=== PATIENT | female | born 1965 | race Two or more races ===

== ENCOUNTER 2023-04-18 14:30 | Outpatient (AMB) | payer OTHER, SELFPAY ==
--- NOTE | 2023-04-18 14:51 | A.OFFPC_ITS ---
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 She has allergic rhinitis and chronic venous insufficiency. Would like Flonase for her allergic rhinitis. Would like of vascular surgery referral for her pains. No chest pain or shortness of breath. [facility] Surgical History (Updated 04/18/23 @ 15:51 by Isis Pace MD) History of bladder surgery History of tubal ligation Family History (Updated 04/18/23 @ 15:52 by Isis Pace MD) Mother Osteoporosis Father No problems noted. Social History Housing: House Alcohol intake: never Patient Tobacco Use Status: Never used Tobacco e-Cigarette/Vaping Use: Never Used Second Hand Smoke Exposure: No service: No Current occupational status: employed Current occupational exposures/hazards: No Cognitive needs: No Hearing needs: No Vision needs: Yes Questionnaire PHQ-9 Over the last 2 weeks, how often have you been bothered by any of the following problems? 1. Little interest or pleasure in doing things: not at all 2. Feeling down, depressed, or hopeless: not at all 3. Trouble falling or staying asleep, or sleeping too much: not at all 4. Feeling tired or having little energy: not at all 5. Poor appetite or overeating: not at all 6. Feeling bad about yourself - or that you are a failure or have let yourself or your family down: not at all 7. Trouble concentrating on things, such as reading the newspaper or watching television: not at all 8. Moving or speaking so slowly that other people could have noticed. Or the opposite - being so fidgety or restless that you have been moving around a lot more than usual: not at all 9. Thoughts that you would be better off or of hurting yourself in some way: not at all Total score: 0 Depression Screening Interpretation: Negative Depression Screening Done: Yes 50302 - PHQ-9 Billing: Yes Source: Developed by Drs. Rojelio Santiago, Francoise Owen, Laith Peres and colleagues, with an educational emma from [employer]. Thrive Questionnaire Date Thrive assessed: 04/18/23 I am a: Patient What is your living situation today?: I have a steady place to live Within the past 12 months, did the food you bought not last and you didn't have the money to get more?: Never true Within the past 12 months, did you worry whether your food would run out before you got money to buy more?: Never true Do you have trouble paying for medicines?: No Do you have trouble getting transportation to medical appointments?: No Do you have trouble paying your heating and electricity bill?: No Do you have trouble taking care of your child, family member or friend?: No Do you have trouble with day-to-day activities such as bathing, preparing meals, shopping, managing finances, etc.?: No Are you currently unemployed and looking for a job?: No Are you interested in more education?: No Please select the resources that you would like help with: None Currently or been in a relationship where the following occur: no concerns reported THRIVE Score: 0 AUDIT C Alcohol Use Questionnaire (AUDIT-C) 1. How often do you have a drink containing alcohol?: Never Total Score: 0 JACQUELINE-7 AMB Questionnaire JACQUELINE-7 Date JACQUELINE - 7 assessed: 04/18/23 Feeling nervous, anxious, or on edge: 0 = Not at all Not being able to stop or control worryin = Not at all Worrying too much about different things: 0 = Not at all Trouble relaxin = Not at all Being so restless that it is hard to sit still: 0 = Not at all Becoming easily annoyed or irritable: 0 = Not at all Feeling afraid as if something awful might happen: 0 = Not at all Total JACQUELINE-7 score (0-4 normal; 5-9 mild; 10-14 moderate; 15-21 severe): 0 Source: Developed by Drs. Rojelio Santiago, Francoise Owen, Laith Peres and colleagues, with an educational emma from [employer]. JACQUELINE-7 Assessment Billing JACQUELINE-7 Assessment Tool: JACQUELINE-7 Assessment 16061 Review of Systems Const All systems reviewed & are unremarkable except as noted in HPI and below Eyes Reports no additional complaints, Denies change in vision and Denies other visual disturbances Card Denies chest pain at rest, Denies chest pain with activity, Denies edema, Denies irregular heart rhythm, Denies claudication, Denies dyspnea, Denies dyspnea on exertion, Denies orthopnea, Denies paroxysmal nocturnal dyspnea and Denies slow heart rate Resp Denies cough, Denies dyspnea and Denies dyspnea on exertion GI Denies abdominal pain, Denies change in bowel habits, Denies excessive flatus, Denies nausea and Denies vomiting Denies urinary incontinence, Denies urinary hesitancy and Denies urinary urgency Musc Denies abnormal gait, Denies atrophy, Denies deformity and Denies limited range of motion Skin/Breast Denies bleeding lesions, Denies changing lesions and Denies rash Neuro Denies abnormal gait, Denies behavioral changes and Denies lack of coordination Psych Denies behavioral changes Physical exam (Primary Care) Vital Signs: Last Vital Signs BP 120/80 04/18/23 14:53 BMI result Body Mass Index 29.9 Tobacco/Smoking Status: Tobacco use Status Tobacco use date assessed 04/18/23 04/18/23 14:59 Patient Tobacco Use Status Never used Tobacco 04/18/23 14:59 e-Cigarette/Vaping Use Never Used 04/18/23 14:59 PHQ-9: PHQ-9 Score PHQ-9: Total score 0 04/18/23 15:26 Depression Screening Interpretation: Negative Thrive Assessment: Date of Thrive Assessment Date Thrive assessed 04/18/23 04/18/23 14:59 Currently or been in a relationship where the following occur: no concerns reported Eyes General: appearance normal, both eyes and all related structures Eyelids: Yes eyelids normal Conjunctivae: conjunctivae normal Neck Neck: Yes normal visual inspection and Yes supple Resp Effort & Inspection: normal respiratory effort Auscultation: clear to auscultation bilaterally Cardio Jugular venous distension: no JVD Rate: regular rate Rhythm: regular rhythm Heart sounds: S1 normal heart sound present and S2 normal heart sound present Extrem General: Yes full ROM Assessment and Plan Assessment & Plan (1) Allergic rhinitis: Code(s): J30.9 - Allergic rhinitis, unspecified Plan: Start Flonase as needed. (2) Chronic venous insufficiency: Code(s): I87.2 - Venous insufficiency (chronic) (peripheral) Plan: Referred to vascular surgery. Orders: Orders MM screening mammo BI Today Z12.31 - Encounter for screening mammogram for malignant neoplasm of breast Referrals Open Access Screening Colonoscopy Referral Z12.11 - Encounter for screening for malignant neoplasm of colon Vascular Surgery Referral I87.2 - Venous insufficiency (chronic) (peripheral) Medications: New fluticasone propionate 50 mcg/actuation (Flonase Allergy Relief) administer into each nostril 1 spray intranasal DAILY 30 days 16 grams 0RF Coding Level of Care Code New Pt Level 3 (41860) Diagnoses Allergic rhinitis J30.9 Chronic venous insufficiency I87.2 Additional Codes JACQUELINE-7 Assessment Billing - JACQUELINE-7 Assessment Tool: JACQUELINE-7 Assessment 88693 ([id number]) Time Spent (min) 20
[2023-04-18 14:53] VITALS: BP 120/80; BMI 29.9
== END 2023-04-18 16:06 | disposition home or self-care (01) ==
PROVIDERS: PCP Internal Medicine; Visit Provider Internal Medicine
DX: J30.9 Allergic rhinitis, unspecified (principal); I87.2 Venous insufficiency (chronic) (peripheral)
CPT/HCPCS: 99203

== ENCOUNTER → 2023-05-11 14:45 | Outpatient (BNV) | payer OTHER, SELFPAY | PROVIDERS: PCP Internal Medicine; Visit Provider Radiology Diagnostic Radiology | DX: Z12.31 Encounter for screening mammogram for malignant neoplasm of breast (principal) | CPT/HCPCS: 77063; 77067 ==

== ENCOUNTER 2023-05-11 14:47 | Outpatient (REF) | payer OTHER, SELFPAY ==
--- NOTE | ~2023-05-11 | MM_ITS ---
EXAMINATION: MM SCREENING DIGITAL BREAST TOMOSYNTHESIS, BILATERAL CLINICAL INFORMATION: Screening. Asymptomatic. COMPARISON: Mammography: There are no prior mammograms for comparison. TECHNIQUE: Digital breast tomosynthesis is performed in both the craniocaudal and mediolateral oblique views along with computer-aided detection (CAD). Synthesized 2D images are generated from the tomosynthesis. FINDINGS: The breasts are heterogeneously dense, which may obscure small masses (ACR BI-RADS breast composition Category c). There are no significant masses, abnormal calcifications, or other abnormalities. MM/MM tomosynthesis screening BI IMPRESSION: No mammographic evidence of malignancy. ASSESSMENT: BI-RADS BI-RADS 1 - Negative RECOMMENDATION: Routine annual mammography screening. 1 year F/U This examination should not preclude the clinical evaluation of a suspicious palpable abnormality. This patient's information was entered into a reminder system with a target due date for their next mammogram.
== END 2023-05-11 14:48 | disposition home or self-care (01) ==
LOC: HO.MAMMO 14:47
PROVIDERS: PCP Internal Medicine; Visit Provider Internal Medicine
DX: Z12.31 Encounter for screening mammogram for malignant neoplasm of breast (principal)
CPT/HCPCS: 77063; 77067

== ENCOUNTER 2023-06-07 13:17 | Outpatient (AMB) | payer OTHER, SELFPAY ==
--- NOTE | 2023-06-07 13:22 | MHC.OFFVIS ---
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 Bilateral , but worse on her right leg. She started getting them once she started having children. She gets cramps , pain and her legs get tired. Her legs feel heavy from time to time.She has always worked on her feet. Patient is not a smoker. Her right leg has varicose starting from the thigh down to her ankle. 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 She does have some varicosities in the right thigh and calf. This gets interesting as she did have a significant swelling episode while in the [place]. It is unclear what exactly happened but she had significant swelling and numbness down the left side of her body. She does not describe it as a stroke type episode. She now has some lower extremity varicosities. She now presents for evaluation. Of note she denies any previous history of treatment or DVT. [facility] Surgical History History of bladder surgery History of tubal ligation Family History Mother Osteoporosis Father No problems noted. Social History Housing: House Alcohol intake: never Patient Tobacco Use Status: Never used Tobacco e-Cigarette/Vaping Use: Never Used Second Hand Smoke Exposure: No service: No Current occupational status: employed Current occupational exposures/hazards: No Cognitive needs: No Hearing needs: No Vision needs: Yes Review of Systems Const Reports as per HPI ENT Reports no additional complaints Card Denies chest pain, Denies chest pain at rest and Denies chest pain with activity Resp Denies chest congestion and Denies cough GI Reports no additional complaints Musc Details: pain over varicosities, aching of lower extremities, swelling, cramping, heaviness and tiredness, itching Denies abnormal gait Skin/Breast Reports pruritus and Denies wounds Neuro Reports no additional complaints and Denies abnormal gait Psych Denies no additional complaints Physical Exam Const General: cooperative, healthy appearing and comfortable Orientation/consciousness: oriented to person, oriented to place and oriented to time Neck Carotids: no bruits Chest Chest palpation & inspection: normal inspection of the chest and normal palpation of entire chest wall Resp Effort & Inspection: normal respiratory effort and able to speak in complete sentences Cardio Rate: regular rate Heart sounds: S1 normal heart sound present and S2 normal heart sound present Peripheral pulses: Peripheral pulses 2+ throughout GI Inspection: Yes normal to inspection Skin Other: +2 edema, large rope-like varicosities greater than 4 mm CEAP Classification C4 - skin color changes Ep - Etiology Primary As - superficial veins P - reflux General skin exam: dry skin Neuro General: oriented to person, oriented to place and oriented to time Extrem Right lower extremity: full ROM, normal capillary refill and edema Left lower extremity: full ROM, normal capillary refill and edema Psych Mental Status: mental status grossly normal Assessment & Plan Assessment & Plan (1) Varicose veins of right lower extremity with inflammation: Code(s): I83.11 - Varicose veins of right lower extremity with inflammation Category: Medical Plan: Unclear etiology of issues. She does have some mild varicosities and I have taken the liberty of ordering venous insufficiency testing to rule that out. We did discuss routine conservative measures including compression, elevation, and exercise. She is planning a trip to the [facility] and we can schedule testing upon her return. She will follow up with us after testing. Thank you for allowing us to assist in her care. Orders: Orders US venous duplex LE BI 1 Week I83.11 - Varicose veins of right lower extremity with inflammation Coding Level of Care Code New Pt Level 4 (70504) Diagnoses Varicose veins of right lower extremity with inflammation I83.11
== END 2023-06-07 13:48 | disposition home or self-care (01) ==
PROVIDERS: PCP Internal Medicine; Visit Provider Surgery Vascular Surgery
DX: I83.11 Varicose veins of right lower extremity with inflammation (principal)
CPT/HCPCS: 99203

== ENCOUNTER → 2023-06-07 13:17 | Outpatient (BNVA) | payer OTHER, SELFPAY | PROVIDERS: PCP Internal Medicine; Visit Provider Surgery Vascular Surgery | DX: I83.11 Varicose veins of right lower extremity with inflammation (principal) | CPT/HCPCS: 99202 ==

== ENCOUNTER 2023-08-16 09:52 | Outpatient (REF) | payer OTHER, SELFPAY ==
--- NOTE | ~2023-08-16 | US_ITS ---
EXAMINATION: US LOWER EXTREMITY VENOUS (REFLUX EXAM), BILATERAL CLINICAL INDICATION: Varicose veins of the right lower extremity with inflammation COMPARISON: None. TECHNIQUE: Color flow triplex imaging and compression Doppler was performed to evaluate both the deep and the superficial systems bilaterally. To evaluate the superficial system, the examination was performed in the upright position. Color-flow Doppler ultrasound and compression ultrasound were utilized. In addition, maneuvers were utilized to demonstrate reflux. FINDINGS: 1. DEEP VENOUS ULTRASOUND OF THE RIGHT LOWER EXTREMITY: Common Femoral Vein: Compressible, normal respiratory variation and augmented flow. Femoral Vein: Compressible, normal color flow and augmentation. Popliteal Vein: Compressible, normal augmentation. Deep Reflux: There is no evidence of reflux in the deep system in either the common femoral vein, superficial femoral or the popliteal vein. There is no evidence of a Suarez's cyst. 2. SUPERFICIAL ULTRASOUND WITH DOPPLER OF RIGHT LOWER EXTREMITY: GREAT SAPHENOUS VEIN: Saphenofemoral Junction: 0.7 cm; Reflux: 0 ms Proximal Thigh: 0.5 cm; Reflux: 0 ms Mid Thigh: 0.3 cm; Reflux: 0 ms Above Knee: 0.4 cm; Reflux: 0 ms At Knee: 0.3 cm; Reflux: 0 ms Below Knee: 0.4 cm; Reflux: 2992 ms Mid Calf: 0.2 cm; Reflux: 0 ms Ankle: 0.2 cm; Reflux: 948 ms DUPLICATED LATERAL GREAT SAPHENOUS VEIN: Saphenofemoral Junction: 0.4 cm; Reflux: 0 ms Mid Thigh: 0.2 cm; Reflux: 0 ms SMALL SAPHENOUS VEIN: Saphenopopliteal Junction: 0.5 cm; Reflux: 0 ms Proximal: 0.3 cm; Reflux: 0 ms Distal: 0.2 cm; Reflux: 948 ms VEIN OF GIACOMINI: Size: 0.2; Reflux: 0 ms PERFORATORS: Location: Mid thigh Size: 0.2; Reflux: 0 ms Location: Distal thigh Size: 0.2; Reflux: 0 ms Location: Mid calf Size: 0.3; Reflux: 0 ms Location: Mid calf Size: 0.4; Reflux: 0 ms VARICOSITIES: Location: ASV lateral mid Size: 0.4; Reflux: 1488 ms Location: Anterior lateral thigh Size: 0.3; Reflux: 3000 ms Location: Mid calf Size: 0.3; Reflux: 0 ms 3. DEEP VENOUS ULTRASOUND OF THE LEFT LOWER EXTREMITY: Common Femoral Vein: Compressible, normal respiratory variation and augmented flow. Femoral Vein: Compressible, normal color flow and augmentation. Popliteal Vein: Compressible, normal augmentation. Deep Reflux: There is no evidence of reflux in the deep system in either the common femoral vein, superficial femoral or the popliteal vein. There is no evidence of a Suarez's cyst. 4. SUPERFICIAL ULTRASOUND WITH DOPPLER OF LEFT LOWER EXTREMITY: GREAT SAPHENOUS VEIN: Saphenofemoral Junction: 0.7 cm; Reflux: 0 ms Proximal Thigh: 0.3 cm; Reflux: 0 ms Mid Thigh: 0.3 cm; Reflux: 0 ms Above Knee: 0.09 cm; Reflux: 0 ms At Knee: 0.06 cm; Reflux: 0 ms Below Knee: 0.1 cm; Reflux: 0 ms Mid Calf: 0.1 cm; Reflux: 2524 ms Ankle: 0.2 cm; Reflux: 0 ms DUPLICATED LATERAL GREAT SAPHENOUS VEIN: Saphenofemoral Junction: 0.3 cm; Reflux: 0 ms Mid Thigh: 0.2 cm; Reflux: 936 ms SMALL SAPHENOUS VEIN: Saphenopopliteal Junction: 0.4 cm; Reflux: 0 ms Proximal: 0.2 cm; Reflux: 0 ms Distal: 0.2 cm; Reflux: 0 ms PERFORATORS: Location: Mid SSV Size: 0.2; Reflux: 0 ms Location: Mid calf Size: 0.2; Reflux: 0 ms VARICOSITIES: Location: Distal thigh Size: 0.3; Reflux: 0 ms Location: Mid calf Size: 0.2; Reflux: 0 ms US/US venous duplex LE BI IMPRESSION: 1. No evidence of deep venous thrombosis. 2. Incompetent right great saphenous vein at the level of the proximal calf and ankle with reflux measuring up to 03/16/1991 milliseconds. 3. Focal incompetence of the right small saphenous vein at the level of the distal calf with reflux measuring 948 ms. 4. Focal incompetence of the left great saphenous vein at the level of the mid calf with reflux measuring 2524 ms. 5. Incompetent left duplicated lateral great saphenous vein at the level of the mid thigh with reflux measuring 936 ms. 6. Competent right duplicated lateral great saphenous vein and left small saphenous vein. 7. Scattered varicose veins in the bilateral lower extremities, two of which demonstrate reflux in the right lower extremity up to 3000 ms. 8. Scattered bilateral perforators, none of which demonstrate reflux.
== END 2023-08-16 09:53 | disposition home or self-care (01) ==
LOC: HO.US 09:52
PROVIDERS: PCP Internal Medicine; Visit Provider Surgery Vascular Surgery
DX: I83.11 Varicose veins of right lower extremity with inflammation (principal)
CPT/HCPCS: 93970

== ENCOUNTER 2023-08-29 10:35 | Outpatient (AMB) | payer OTHER, SELFPAY ==
[2023-08-29 10:46] VITALS: BP 110/70; BMI 29.9
--- NOTE | 2023-08-29 10:46 | MHC.PC.OV ---
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 Accompanied by: Self / Same As Patient Allergies No Known Allergies Allergy (Verified 08/29/23 11:07) Medication List - Last Reconciled 08/29/23 by Isis Pace MD fluticasone propionate 50 mcg/actuation (Flonase Allergy Relief) 1 spray intranasal DAILY 30 days Tobacco use date assessed: 04/18/23 Dental Screening Dental Screen Date: 08/29/23 Did you have a dental visit in the last 12 months?: No Did you have a dental problem in the last 6 months where you did not have access to dental care?: No Was dental information given to patient?: Yes HPI HPI Comments History of Present Illness Details This is a 57-year-old female that comes for her physical exam. Mammogram done 2023 was normal. Pap smear done 2022 in [place] was normal as per patient. She was refer through open access in April and has not heard back from them. No chest pain or shortness on breath. She does complains dizziness with left ear tinnitus that is aggravated by changes in head position that started about a month ago after she came from [facility] in the plane. [facility] Surgical History History of tooth extraction History of bladder surgery History of tubal ligation Family History Mother Osteoporosis Father No problems noted. Social History Housing: House Alcohol intake: never Patient Tobacco Use Status: Never used Tobacco e-Cigarette/Vaping Use: Never Used Second Hand Smoke Exposure: No service: No Current occupational status: employed Current occupational exposures/hazards: No Cognitive needs: No Hearing needs: No Vision needs: Yes Questionnaire Thrive Questionnaire Date Thrive assessed: 04/18/23 JACQUELINE-7 AMB Questionnaire JACQUELINE-7 Date JACQUELINE - 7 assessed: 04/18/23 Source: Developed by Drs. Rojelio Santiago, Francoise B.Laith Humphreys and colleagues, with an educational emma from [employer]. Review of Systems Const All systems reviewed & are unremarkable except as noted in HPI and below ENT Reports vertigo and Reports tinnitus Card Denies chest pain at rest, Denies chest pain with activity, Denies edema, Denies irregular heart rhythm, Denies claudication, Denies dyspnea, Denies dyspnea on exertion, Denies orthopnea, Denies paroxysmal nocturnal dyspnea and Denies slow heart rate Resp Denies cough, Denies dyspnea and Denies dyspnea on exertion GI Denies abdominal pain, Denies change in bowel habits, Denies excessive flatus, Denies nausea and Denies vomiting Neuro Reports vertigo Physical exam (Primary Care) Vital Signs: Last Vital Signs BP 110/70 08/29/23 10:46 BMI result Body Mass Index 29.9 Tobacco/Smoking Status: Tobacco use Status Tobacco use date assessed 04/18/23 08/29/23 10:49 Patient Tobacco Use Status Never used Tobacco 08/29/23 10:49 e-Cigarette/Vaping Use Never Used 08/29/23 10:49 Thrive Assessment: Date of Thrive Assessment Date Thrive assessed 04/18/23 08/29/23 10:49 [facility] Head: Yes normal to inspection, Yes normocephalic and Yes atraumatic Ears: external ears normal Eyes General: appearance normal, both eyes and all related structures Eyelids: Yes eyelids normal Conjunctivae: conjunctivae normal Neck Neck: Yes normal visual inspection and Yes supple Resp Effort & Inspection: normal respiratory effort Auscultation: clear to auscultation bilaterally Cardio Jugular venous distension: no JVD Rate: regular rate Rhythm: regular rhythm Heart sounds: S1 normal heart sound present and S2 normal heart sound present GI Inspection: Yes normal to inspection Palpation (GI): Soft to palpation and nontender Auscultation: normal bowel sounds Skin General skin exam: no rashes or lesions noted Neuro General: no focal motor deficits Extrem General: Yes full ROM Psych Appearance: grossly normal Assessment and Plan Assessment & Plan (1) Physical exam: Code(s): Z00.00 - Encounter for general adult medical examination without abnormal findings Plan: Repeat in a year. (2) Vertigo: Code(s): R42 - Dizziness and giddiness Plan: Start meclizine as needed. Referred to vestibular therapy. Patient would like to see ENT and was referred. Orders: Orders Complete Blood Count Auto Diff Today R42 - Dizziness and giddiness Lipid Panel Today Z00.00 - Encounter for general adult medical examination without abnormal findings PT Evaluation and Treatment Today R42 - Dizziness and giddiness Comprehensive [place]. Panel Fast Today Z00.00 - Encounter for general adult medical examination without abnormal findings Referrals Ear/Nose/Throat Referral R42 - Dizziness and giddiness Medications: New meclizine 25 mg PO DAILY 5 days PRN 5 tabs 0RF motion sickness Coding Level of Care Code Est Pt Level 3 (69688) Est Pt Prev Care 40-64y(21609) Diagnoses Physical exam Z00.00 Vertigo R42 Time Spent (min) 34
== END 2023-08-29 11:19 | disposition home or self-care (01) ==
PROVIDERS: PCP Internal Medicine; Visit Provider Internal Medicine
DX: Z00.00 Encounter for general adult medical examination without abnormal findings (principal); R42 Dizziness and giddiness
CPT/HCPCS: 99213; 99396

== ENCOUNTER 2023-11-13 14:29 | Outpatient (AMB) | payer OTHER, SELFPAY ==
--- NOTE | 2023-11-13 14:41 | A.OFFVIS_ITS ---
Intake Visit Reasons: follow up s/p US 08/16/23 Intake Note: Patient presents for follow up US performed on 08/06/23. She states she only has pain in the right leg. Both legs get tired . Allergies No Known Allergies Allergy (Verified 11/13/23 14:43) [facility] follow up s/p US 08/16/23: Details: Pleasant 57-year-old female presents for follow-up regarding venous insufficien cy. She has significantly swollen and painful varicosities in particular the right anterior thigh they have been a source of pain and discomfort for her. She now presents for follow-up regarding that. She has had no interval issues. She now presents for follow-up with venous insufficiency testing. [facility] Surgical History History of tooth extraction History of bladder surgery History of tubal ligation Family History Mother Osteoporosis Father No problems noted. Social History Housing: House Alcohol intake: never Patient Tobacco Use Status: Never used Tobacco e-Cigarette/Vaping Use: Never Used Second Hand Smoke Exposure: No service: No Current occupational status: employed Current occupational exposures/hazards: No Cognitive needs: No Hearing needs: No Vision needs: Yes Review of Systems Const Reports as per HPI ENT Reports no additional complaints Card Denies chest pain, Denies chest pain at rest and Denies chest pain with activity Resp Denies chest congestion and Denies cough GI Reports no additional complaints Musc Details: pain over varicosities, aching of lower extremities, swelling, cramping, heaviness and tiredness, itching Denies abnormal gait Skin/Breast Reports pruritus and Denies wounds Neuro Reports no additional complaints and Denies abnormal gait Psych Denies no additional complaints Physical Exam Const General: cooperative, healthy appearing and comfortable Orientation/consciousness: oriented to person, oriented to place and oriented to time Neck Carotids: no bruits Chest Chest palpation & inspection: normal inspection of the chest and normal palpation of entire chest wall Resp Effort & Inspection: normal respiratory effort and able to speak in complete sentences Cardio Rate: regular rate Heart sounds: S1 normal heart sound present and S2 normal heart sound present Peripheral pulses: Peripheral pulses 2+ throughout GI Inspection: Yes normal to inspection Skin Other: +2 edema, large rope-like varicosities greater than 4 mm right anterior thigh CEAP Classification C4 - skin color changes Ep - Etiology Primary As - superficial veins P - reflux General skin exam: dry skin Neuro General: oriented to person, oriented to place and oriented to time Extrem Right lower extremity: full ROM, normal capillary refill and edema Left lower extremity: full ROM, normal capillary refill and edema Psych Mental Status: mental status grossly normal Results Reviewed Results Reviewed: Brief summary of venous insufficiency testing is as follows: right great saphenous vein: Positive right small saphenous vein: negative right accessory vein: none present left great saphenous vein: negative left small saphenous vein: negative left accessory vein: none present Please note there is no evidence of any venous aneurysms or significant tortuosity Assessment & Plan Assessment & Plan (1) Varicose veins of right lower extremity with inflammation: Code(s): I83.11 - Varicose veins of right lower extremity with inflammation Category: Medical Plan: This patient has varicose veins with inflammation. They continue to be a source of discomfort for the patient. The patient has tried conservative treatment with compression, leg elevation and exercise program for over 3 months time. They have been compliant with all treatment. This has provided minimal relief for the patient. I do not anticipate this course of treatment will alter the underlying etiology. The patient has been scheduled for lower extremity venous treatment inclusive of --- right great saphenous vein Cyanoacralate ablation. Risks, benefits, and complications of this procedure has been discussed in detail with the patient including but not limited to bleeding, infection, and the development of a DVT. The patient has demonstrated a clear understanding and has consented. We will schedule the patient as soon as possible. Thank you for allowing us to participate in this patient's care. If there are any questions or concerns please do not hesitate to contact us. Coding Level of Care Code Est Pt Level 4 (71193) Diagnoses Varicose veins of right lower extremity with inflammation I83.11
== END 2023-11-13 15:02 | disposition home or self-care (01) ==
PROVIDERS: PCP Internal Medicine; Visit Provider Surgery Vascular Surgery
DX: I83.11 Varicose veins of right lower extremity with inflammation (principal)
CPT/HCPCS: 99214

== ENCOUNTER → 2023-11-13 14:29 | Outpatient (BNVA) | payer OTHER, SELFPAY | PROVIDERS: PCP Internal Medicine; Visit Provider Surgery Vascular Surgery | DX: I83.11 Varicose veins of right lower extremity with inflammation (principal); H81.10 Benign paroxysmal vertigo, unspecified ear; J00 Acute nasopharyngitis [common cold]; Z28.21 Immunization not carried out because of patient refusal | CPT/HCPCS: 90471; 99212 ==

== ENCOUNTER 2023-11-13 15:10 | Outpatient (AMB) | payer OTHER, SELFPAY ==
--- NOTE | 2023-11-13 15:12 | A.OFFPC_ITS ---
Vital Signs 11/13/23 15:13 Height 5 ft 4 in Weight 177 lb BMI 30.4 BP 118/76 Blood Pressure Location Lt brachial Position Sitting Intake Visit Reasons: sinus/allergies Dry Sander Required: No Accompanied by: Self / Same As Patient Allergies No Known Allergies Allergy (Verified 11/13/23 15:18) Medication List - Last Reconciled 11/13/23 by Isis Pace MD fluticasone propionate 50 mcg/actuation (Flonase Allergy Relief) 1 spray intranasal DAILY 30 days meclizine 25 mg PO DAILY PRN 5 days Tobacco use date assessed: 04/18/23 Dental Screening Dental Screen Date: 08/29/23 HPI HPI Comments History of Present Illness Details This is a 57-year-old female with vertigo that comes today complaining of a sinus congestion and some cough that started 5 days ago and is improving. She tested negative for COVID-19 in a home test. Vertigo still present with meclizine and wants to see ENT. Was referred in August and received an appointment for March and she declined it. She said she needed to be sooner than March and wanted me to put the referral origin which I did but in the end it did not work. She will call them up for an appointment. [facility] Surgical History History of tooth extraction History of bladder surgery History of tubal ligation Family History Mother Osteoporosis Father No problems noted. Social History Housing: House Alcohol intake: never Patient Tobacco Use Status: Never used Tobacco e-Cigarette/Vaping Use: Never Used Second Hand Smoke Exposure: No service: No Current occupational status: employed Current occupational exposures/hazards: No Cognitive needs: No Hearing needs: No Vision needs: Yes Questionnaire Thrive Questionnaire Date Thrive assessed: 04/18/23 JACQUELINE-7 AMB Questionnaire JACQUELINE-7 Date JACQUELINE - 7 assessed: 04/18/23 Source: Developed by Drs. Rojelio Santiago, Francoise Owen, Laith Peres and colleagues, with an educational emma from [employer]. Review of Systems Const All systems reviewed & are unremarkable except as noted in HPI and below Card Denies chest pain at rest, Denies chest pain with activity, Denies edema, Denies irregular heart rhythm, Denies claudication, Denies dyspnea, Denies dyspnea on exertion, Denies orthopnea, Denies paroxysmal nocturnal dyspnea and Denies slow heart rate Resp Denies cough, Denies dyspnea and Denies dyspnea on exertion GI Denies abdominal pain, Denies change in bowel habits, Denies excessive flatus, Denies nausea and Denies vomiting Physical exam (Primary Care) Vital Signs: Last Vital Signs BP 118/76 11/13/23 15:13 BMI result Body Mass Index 30.4 Tobacco/Smoking Status: Tobacco use Status Tobacco use date assessed 04/18/23 11/13/23 15:14 Patient Tobacco Use Status Never used Tobacco 11/13/23 15:14 e-Cigarette/Vaping Use Never Used 11/13/23 15:14 Thrive Assessment: Date of Thrive Assessment Date Thrive assessed 04/18/23 11/13/23 15:14 Resp Effort & Inspection: normal respiratory effort Auscultation: clear to auscultation bilaterally Cardio Jugular venous distension: no JVD Rate: regular rate Rhythm: regular rhythm Heart sounds: S1 normal heart sound present and S2 normal heart sound present Extrem General: Yes full ROM Office Procedures Flu Questionnaire Does the patient have a severe egg allergy?: No Immunizations Fluarix Triv [id number] (PF) 45 mcg (15 mcg x 3)/0.5 mL IM syringe Performing Provider: Isis Pace MD [facility] Documented (not given) by: CHELSIE Nielsen on 11/13/23 15:17 Reason Not Given: Patient Refused Coding Level of Care Code Est Pt Level 3 (81577) Complex EM visit Add On G2211 Diagnoses BPPV (benign paroxysmal positional vertigo) H81.10 Common cold J00 Time Spent (min) 19 Assessment & Plan Assessment & Plan (1) BPPV (benign paroxysmal positional vertigo): Code(s): H81.10 - Benign paroxysmal vertigo, unspecified ear Category: Medical Plan: Continue meclizine as needed. (2) Common cold: Code(s): J00 - Acute nasopharyngitis [common cold] Category: Medical Plan: Treat symptoms. Orders: Orders XR chest 2V Today R76.11 - Nonspecific reaction to tuberculin skin test without active tuberculosis Influenza [id number] Immunization Today Z23 - Encounter for immunization
[2023-11-13 15:13] VITALS: BP 118/76; BMI 30.4
== END 2023-11-13 15:25 | disposition home or self-care (01) ==
LOC: HO.HMCH 15:10
PROVIDERS: PCP Internal Medicine; Visit Provider Internal Medicine
DX: H81.10 Benign paroxysmal vertigo, unspecified ear (principal); J00 Acute nasopharyngitis [common cold]; Z23 Encounter for immunization

== ENCOUNTER 2023-11-22 08:46 | Outpatient (REF) | payer OTHER, SELFPAY ==
[2023-11-22 09:02] LABS: MANUAL DIFF FLAG NO
[2023-11-22 09:13] LABS: Basophils Absolute Auto 0.1 X10*3/uL (0.0-0.2); Basophils Percent Auto 1.1 % (0-2); Eosinophils Absolute Auto 0.7 X10*3/uL (0.0-0.4); Eosinophils Percent Auto 7.8 % (0-4); Hematocrit 43.4 % (37.0-47.0); Hemoglobin 14.4 g/dl (12.0-16.0); Imm Gran Abs Auto 0.03 X10*3/uL (0.00-0.03); Imm Gran Pct Auto 0.4 % (0.0-0.4); Lymphocytes Percent Auto 23.8 % (20-40); Mean Corpuscular HGB Conc 33.2 g/dl (31.0-35.0); Mean Corpuscular Hemoglobin 32.1 pg (27.0-33.0); Mean Corpuscular Volume 96.9 fL (80.0-98.0); Mean Platelet Volume 9.9 fL (9.4-12.3); Monocytes Absolute Auto 0.8 X10*3/uL (0.1-1.2); Neutrophils Absolute Auto 4.9 x10*3/uL (2.0-8.3); Neutrophils Percent Auto 57.9 % (45-73); Platelet Count 281 X10*3/uL (160-400); Red Blood Count 4.48 X10*6/uL (4.20-5.50); Red Cell Distribution Width 12.4 % (11.0-16.0); White Blood Count 8.4 X10*3/uL (4.8-10.8)
[2023-11-22 09:44] LABS: Alanine Aminotransferase 13 U/L (0-31); Albumin Level 4.2 g/dL (3.5-5.0); Alkaline Phosphatase 89 U/L (39-117); Anion Gap 9 (12-20); Aspartate Amino Transferase 14 U/L (5-31); Bilirubin Total 0.5 mg/dL (0.0-1.0); Blood Urea Nitrogen 13 mg/dL (9-16); Calcium 9.8 mg/dL (8.4-10.2); Carbon Dioxide 29 mmol/L (22-29); Chloride 107 mmol/L (96-108); Cholesterol 245 mg/dL (<200); Estimated Glomerular Filt Rate 59; Glucose Fasting 99 mg/dL (60-99); HDL Cholesterol 48 mg/dL (>40); LDL Cholesterol Calculated 168 mg/dL (<100); Potassium 4.6 mmol/L (3.3-5.1); Sodium 140 mmol/L (135-145); Total Protein 7.6 g/dL (6.5-8.0); Triglycerides 147 mg/dL (<150)
== END 2023-11-22 08:47 | disposition home or self-care (01) ==
LOC: HO.LAB 08:46
PROVIDERS: PCP Internal Medicine; Visit Provider Internal Medicine
DX: Z00.00 Encounter for general adult medical examination without abnormal findings (principal); R76.11 Nonspecific reaction to tuberculin skin test without active tuberculosis; R42 Dizziness and giddiness
CPT/HCPCS: 36415; 71046; 80053; 80061; 85025

== ENCOUNTER 2023-11-22 10:38 | Outpatient (RCR) | payer OTHER, SELFPAY | END 2023-11-22 13:04 | disposition home or self-care (01) | LOC: HO.PT 10:38 | PROVIDERS: PCP Internal Medicine; Visit Provider Internal Medicine | DX: H81.10 Benign paroxysmal vertigo, unspecified ear (principal) | CPT/HCPCS: 97161 ==

== ENCOUNTER 2024-01-18 09:14 | Outpatient (AMB) | payer OTHER, SELFPAY ==
[2024-01-18 10:46] VITALS: BMI 30.4
--- NOTE | 2024-01-18 10:46 | MHC.OFFVIS ---
Vital Signs 01/18/24 10:46 Height 5 ft 4 in Weight 177 lb BMI 30.4 Intake Visit Reasons: Right GSV Venaseal Accompanied by: Self / Same As Patient Allergies No Known Allergies Allergy (Verified 01/18/24 10:46) [facility] Surgical History History of tooth extraction History of bladder surgery History of tubal ligation Family History Mother Osteoporosis Father No problems noted. Social History Housing: House Alcohol intake: never Patient Tobacco Use Status: Never used Tobacco e-Cigarette/Vaping Use: Never Used Second Hand Smoke Exposure: No service: No Current occupational status: employed Current occupational exposures/hazards: No Cognitive needs: No Hearing needs: No Vision needs: Yes Physical Exam Vital Signs: BMI result Body Mass Index 30.4 Office Procedures Vascular Office Procedure Details Details: Diagnosis: Right Leg varicose veins with inflammation Procedure: Endovenous Ablation of the right Great Saphenous Vein with VenaSeal Closure System Anesthesia: Local infiltration 5 cc, Estimated Blood Loss: min Specimen: none Duplex ultrasound was used to map out the insufficient saphenous vein, and access was determined and marked on the overlying skin. The depth and diameter of the vein(s) to be treated was documented. The patient was placed supine on the procedure table and the leg was prepped and draped using sterile technique. Ultasound guidance was again used to localize the access site. 1% lidocaine was injected as a local anesthetic in the subcutaneous tissues at the target location in the GSV in the lower leg. Using ultrasound guidance, access was gained at this location with the 19 gauge thin walled access needle and followed by introduction of a short guidewire, location confirmed with ultrasound. A small, 3 mm incision was made at the access site to allow for introduction and placement of the 7 Fr x7cm introducer/dilator. The dilator and guidewire were removed. The 0.035 guidewire from the VenaSeal kit was then introduced and positioned at the saphenofemoral junction using ultrasound guidance. The 80 cm 7 Fr introducer sheath/dilator was positioned 5cm from the saphenofemoral junction. The guidewire and dilator were removed, and the remaining sheath was flushed with sterile saline, with the syringe remaining in place prior to the next steps. The cyanoacrylate adhesive was precisely primed into the 5 F delivery catheter and this catheter/syringe combination was attached within the dispenser gun. This assembly was introduced through the 7F sheath and positioned 5 cm caudal of the saphenofemoral junction under ultrasound guidance. The steps from the IFU were followed for dispensing amounts, locations and compression times, 2 aliquots proximally with 3 minutes of compression, and 1 aliquot every 3 cm distally with 30 sec of compression along the course of the vessel. Following the last injection and compression sequence, the catheter and introducer sheath were pulled out from the access site. Hemostasis was achieved with manual compression and an adhesive bandage was applied to the incision. Ultrasound confirmed complete coaptation and closure of the treated segments of the GSV, and the absence of any DVT at the saphenofemoral junction. Treatment time was approximately 5 minutes and the vein length treated was 45 cm. The drapes were removed and the patient cleaned and prepared for discharge. Post op ultrasound check is scheduled for 48-72 hours and the patient was given written post-op instructions. 70933 - Endoven Ther Chem Adhes 1st All charges added?: Procedure code (CPT) selection complete Assessment & Plan Assessment & Plan (1) Varicose veins of right lower extremity with inflammation: Comment: 01/18/2024 - right great saphenous vein venous Code(s): I83.11 - Varicose veins of right lower extremity with inflammation Category: Medical Plan: See op note Coding Level of Care Code Procedure Only Diagnoses Varicose veins of right lower extremity with inflammation I83.11 CPT Codes Details - Vascular 3: 44251 - Endoven Ther Chem Adhes 1st ([id number])
== END 2024-01-18 11:37 | disposition home or self-care (01) ==
PROVIDERS: PCP Internal Medicine; Visit Provider Surgery Vascular Surgery
DX: I83.11 Varicose veins of right lower extremity with inflammation (principal)
CPT/HCPCS: 36482

== ENCOUNTER → 2024-01-18 09:14 | Outpatient (BNVA) | payer OTHER, SELFPAY | PROVIDERS: PCP Internal Medicine; Visit Provider Surgery Vascular Surgery | DX: I83.11 Varicose veins of right lower extremity with inflammation (principal) | CPT/HCPCS: 36482; J2003 ==

== ENCOUNTER 2024-01-28 11:04 | Outpatient (AMB) | payer OTHER, SELFPAY ==
--- NOTE | 2024-01-28 11:08 | MHC.OFFVIS ---
Intake Visit Reasons: redness and swelling s/p Venaseal Intake Note: Patient presents for redness and swelling s/p venaseal. Patient is walking with a limp. Accompanied by: Self / Same As Patient Allergies No Known Allergies Allergy (Verified 01/28/24 11:14) HPI HPI redness and swelling s/p Venaseal: Details: Erendira Benson is presenting today for concerns of right lower extremity swelling, pain, and erythema. We utilized the formulator compounder #[id number]. She is s/p right GSV Venaseal with Dr Joel on 01/17. She tolerated the procedure well. She was given postop instructions; she states she has been wearing compression stockings daily and her leg has been hurting and is very swollen and red. She presented to [facility] ER on 01/23 with concerns for right leg erythema, warmth, and edema. They diagnosed her with a DVT and put her on Eliquis. On US it was noted - a long segement thrombus within the greater saphenous vein, 1.3cm from the CFV junction. The pt is here today to follow up from the ER with continued complaints of erythema, edema, and warmth. [facility] Surgical History History of tooth extraction History of bladder surgery History of tubal ligation Family History Mother Osteoporosis Father No problems noted. Social History Housing: House Alcohol intake: never Patient Tobacco Use Status: Never used Tobacco e-Cigarette/Vaping Use: Never Used Second Hand Smoke Exposure: No service: No Current occupational status: employed Current occupational exposures/hazards: No Cognitive needs: No Hearing needs: No Vision needs: Yes Review of Systems Const Reports as per HPI and Denies weakness ENT Reports Normal hearing present and Denies dizziness Card Reports as per HPI, Denies chest pain, Denies chest pain at rest, Denies chest pain with activity, Denies dyspnea and Denies dyspnea on exertion Resp Reports as per HPI, Denies cough, Denies dyspnea and Denies dyspnea on exertion GI Reports as per HPI, Denies abdominal pain, Denies nausea and Denies vomiting Musc Denies numbness Skin/Breast Reports as per HPI, Denies erythema and Denies wounds Neuro Reports Normal hearing present, Denies dizziness, Denies numbness, Denies Sensory deficit (Neuro) and Denies weakness Psych Reports no additional complaints Endo Reports no additional complaints Physical Exam Const General: healthy appearing and no acute distress Orientation/consciousness: patient oriented x3 HEENT Head: Yes normal to inspection Ears: hearing grossly normal bilaterally Mouth: Normal oral and palatal mucosa present Resp Effort & Inspection: normal respiratory effort and able to speak in complete sentences Auscultation: clear to auscultation bilaterally Cardio Jugular venous distension: no JVD Rate: regular rate Rhythm: regular rhythm Heart sounds: S1 normal heart sound present and S2 normal heart sound present Bruits: no abdominal aortic bruits, no carotid bruits, no femoral bruits and no renal bruits Peripheral pulses: Peripheral pulses 2+ throughout GI Inspection: Yes normal to inspection Palpation (GI): No Abdominal aortic bruit present Skin General skin exam: no rashes or lesions noted Wounds: no wounds Hair: normal Neuro General: patient oriented x3 Cranial nerves: Yes Normal hearing present Cognition (Neuro): normal cognition Gait exam (Neuro): Normal gait present Motor exam (neuro): 5/5 motor strength present throughout Sensory Exam: No Sensory deficit (Neuro) Extrem Other: RUE/RLE: no erythema, warmth, or edema noted. Venaseal site is C/D/I. Site is slightly tender to palpation and feels slightly hard to the touch. No cellulitis/infection noted. General: Yes normal to inspection, Yes full ROM, Yes capillary refill normal and Yes normal gait Results Reviewed Results Reviewed: US results from [facility], 01/23 Assessment & Plan Assessment & Plan (1) Varicose veins of right lower extremity with inflammation: Comment: 01/18/2024 - right great saphenous vein venous Code(s): I83.11 - Varicose veins of right lower extremity with inflammation Category: Medical Plan: Erendira Benson is presenting today for a follow up to ER visit on 01/23 for concerns of right leg swelling/edema/erythema and pain. She is s/p right GSV Venaseal on 01/17. She was diagnosed with a DVT and placed on Eliquis. She was due for a follow up to the procedure on 01/31. The site is C/D/I and there is no erythema, swelling, warmth, or edema noted today. We will use this visit as her follow up as well; the pt is in agreement to this. She states the leg is better than when she went to the ER last week but still has concerns. I discussed with her that the site is healing well and there are no concerns. We discussed that she can continue with compression stockings if she feels like she needs to wear them, but it is not necessary. We discussed to discontinue the Eliquis; I discussed with her that the findings on the US is consistent with the procedure that we performed and that she does not need to stay on anticoagulation. I discussed the s/s to look for for clots. I discussed with her that everything looks great. We will not need her to follow up at this point. We discussed compression stockings as needed as well as a well balanced diet and physical activity. If there are any questions or concerns, please do not hesitate to reach out. Coding Level of Care Code Est Pt Level 4 (28865) Diagnoses Varicose veins of right lower extremity with inflammation I83.11
== END 2024-01-28 11:34 | disposition home or self-care (01) ==
PROVIDERS: PCP Internal Medicine; Visit Provider Physician Assistant Surgical
DX: I83.11 Varicose veins of right lower extremity with inflammation (principal)
CPT/HCPCS: 99214

== ENCOUNTER → 2024-01-28 11:04 | Outpatient (BNVA) | payer OTHER, SELFPAY | PROVIDERS: PCP Internal Medicine; Visit Provider Physician Assistant Surgical | DX: I83.11 Varicose veins of right lower extremity with inflammation (principal) | CPT/HCPCS: 99212 ==

== ENCOUNTER 2024-07-08 15:27 | Outpatient (AMB) | payer OTHER, SELFPAY ==
--- NOTE | 2024-07-08 15:36 | MHC.PC.OV ---
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 Accompanied by: Self / Same As Patient Allergies No Known Allergies Allergy (Verified 07/08/24 15:54) Medication List - Last Reconciled 07/08/24 by Isis Pace MD apixaban (Eliquis DVT-PE Treat 30D Start) mg PO fluticasone propionate 50 mcg/actuation (Flonase Allergy Relief) 1 spray intranasal DAILY 30 days Tobacco use date assessed: 07/08/24 Dental Screening Dental Screen Date: 07/08/24 Did you have a dental visit in the last 12 months?: No Did you have a dental problem in the last 6 months where you did not have access to dental care?: No Was dental information given to patient?: Patient has dentist HPI HPI Comments History of Present Illness Details The patient is a 58-year-old female presenting with fatigue, leg heaviness, blurry vision, and breathing difficulties at night. Previous surgery for varicose veins led to a VTE for which she completed anticoagulation therapy. She notes ongoing heaviness and tingling in the legs, which aspirin helps alleviate temporarily. Blurred vision has been progressing, impacting her everyday life. Chronic sinusitis and allergic rhinitis persist, and accessibility to nasal sprays is limited. Concerns about disrupted breathing during rest indicate possible sleep apnea. Previous testing showed high cholesterol, but management has yet to commence. Blood sugar levels have been normal at 99 mg/dL. Has chronic venous insufficiency and was evaluated by vascular surgery. Patient has history of DVT on Eliquis for 3 months. DVT was provoked after surgery. No need for chronic anticoagulation. [facility] Surgical History History of tooth extraction History of bladder surgery History of tubal ligation Family History Mother Osteoporosis Father No problems noted. Social History Housing: House Alcohol intake: never Patient Tobacco Use Status: Never used Tobacco e-Cigarette/Vaping Use: Never Used Second Hand Smoke Exposure: No service: No Current occupational status: employed Current occupational exposures/hazards: No Cognitive needs: No Hearing needs: No Vision needs: Yes Questionnaire PHQ-9 Over the last 2 weeks, how often have you been bothered by any of the following problems? 1. Little interest or pleasure in doing things: not at all 2. Feeling down, depressed, or hopeless: not at all 3. Trouble falling or staying asleep, or sleeping too much: not at all 4. Feeling tired or having little energy: not at all 5. Poor appetite or overeating: not at all 6. Feeling bad about yourself - or that you are a failure or have let yourself or your family down: not at all 7. Trouble concentrating on things, such as reading the newspaper or watching television: not at all 8. Moving or speaking so slowly that other people could have noticed. Or the opposite - being so fidgety or restless that you have been moving around a lot more than usual: not at all 9. Thoughts that you would be better off or of hurting yourself in some way: not at all Total score: 0 Depression Screening Interpretation: Negative Depression Screening Done: Yes 73415 - PHQ-9 Billing: Yes Source: Developed by Drs. Rojelio Santiago, Francoise Owen, Laith Peres and colleagues, with an educational emma from [employer]. Thrive Questionnaire Date Thrive assessed: 07/08/24 I am a: Patient What is your living situation today?: I have a steady place to live Within the past 12 months, did the food you bought not last and you didn't have the money to get more?: I choose not to answer this question Within the past 12 months, did you worry whether your food would run out before you got money to buy more?: I choose not to answer this question Do you have trouble paying for medicines?: I choose not to answer this question Do you have trouble getting transportation to medical appointments?: I choose not to answer this question Do you have trouble paying your heating and electricity bill?: I choose not to answer this question Do you have trouble taking care of your child, family member or friend?: I choose not to answer this question Do you have trouble with day-to-day activities such as bathing, preparing meals, shopping, managing finances, etc.?: I choose not to answer this question Are you currently unemployed and looking for a job?: I choose not to answer this question Are you interested in more education?: I choose not to answer this question Please select the resources that you would like help with: None Currently or been in a relationship where the following occur: I choose not to answer THRIVE Score: 0 AUDIT C Alcohol Use Questionnaire (AUDIT-C) 1. How often do you have a drink containing alcohol?: Never Total Score: 0 Score Reviewed/Action Taken: No JACQUELINE-7 AMB Questionnaire JACQUELINE-7 Date JACQUELINE - 7 assessed: 07/08/24 Feeling nervous, anxious, or on edge: 0 = Not at all Not being able to stop or control worryin = Not at all Worrying too much about different things: 0 = Not at all Trouble relaxin = Not at all Being so restless that it is hard to sit still: 0 = Not at all Becoming easily annoyed or irritable: 0 = Not at all Feeling afraid as if something awful might happen: 0 = Not at all Total JACQUELINE-7 score (0-4 normal; 5-9 mild; 10-14 moderate; 15-21 severe): 0 Source: Developed by Drs. Rojelio Santiago, Francoise Owen, Laith Peres and colleagues, with an educational emma from [employer]. JACQUELINE-7 Assessment Billing JACQUELINE-7 Assessment Tool: JACQUELINE-7 Assessment 09556 Review of Systems Const All systems reviewed & are unremarkable except as noted in HPI and below Card Denies chest pain at rest, Denies chest pain with activity, Denies edema, Denies irregular heart rhythm, Denies claudication, Denies dyspnea, Denies dyspnea on exertion, Denies orthopnea, Denies paroxysmal nocturnal dyspnea and Denies slow heart rate Resp Denies cough, Denies dyspnea and Denies dyspnea on exertion GI Denies abdominal pain, Denies change in bowel habits, Denies excessive flatus, Denies nausea and Denies vomiting Denies urinary incontinence, Denies urinary hesitancy and Denies urinary urgency Musc Denies abnormal gait, Denies atrophy, Denies deformity and Denies limited range of motion Skin/Breast Denies bleeding lesions, Denies changing lesions and Denies rash Neuro Denies abnormal gait and Denies lack of coordination Physical exam (Primary Care) Vital Signs: Last Vital Signs BP 132/80 07/08/24 15:37 BMI result Body Mass Index 31.9 Tobacco/Smoking Status: Tobacco use Status Tobacco use date assessed 07/08/24 07/08/24 15:46 Patient Tobacco Use Status Never used Tobacco 07/08/24 15:46 e-Cigarette/Vaping Use Never Used 07/08/24 15:46 PHQ-9: PHQ-9 Score PHQ-9: Total score 0 07/08/24 16:00 Depression Screening Interpretation: Negative Thrive Assessment: Date of Thrive Assessment Date Thrive assessed 07/08/24 07/08/24 15:46 Currently or been in a relationship where the following occur: I choose not to answer Resp Effort & Inspection: normal respiratory effort Auscultation: clear to auscultation bilaterally Cardio Jugular venous distension: no JVD Rate: regular rate Rhythm: regular rhythm Heart sounds: S1 normal heart sound present and S2 normal heart sound present Extrem General: Yes full ROM Coding Level of Care Code Est Pt Level 4 (83946) Complex EM visit Add On G2211 Diagnoses Blurry vision H53.8 Allergic rhinitis J30.9 Chronic venous insufficiency I87.2 Pure hypercholesterolemia E78.00 Additional Codes JACQUELINE-7 Assessment Billing - JACQUELINE-7 Assessment Tool: JACQUELINE-7 Assessment 90010 ([id number]) PHQ-9 - 23927 - PHQ-9 Billing: Yes ([id number]) Time Spent (min) 24 Assessment & Plan Assessment & Plan (1) Blurry vision: Code(s): H53.8 - Other visual disturbances Category: Medical (2) Allergic rhinitis: Code(s): J30.9 - Allergic rhinitis, unspecified Category: Medical (3) Chronic venous insufficiency: Code(s): I87.2 - Venous insufficiency (chronic) (peripheral) Category: Medical (4) Pure hypercholesterolemia: Code(s): E78.00 - Pure hypercholesterolemia, unspecified Category: Medical Plan Current management emphasizes the prevention and monitoring of suspected conditions such as sleep apnea through otolaryngology referrals. Aspirin is recommended for cardiovascular health. Ophthalmology will evaluate blurred vision. Chronic sinusitis will be managed with newly available intranasal corticosteroids and montelukast, monitoring for side effects. The possibility of GERD is managed with famotidine. Hypercholesterolemia will be reassessed with a future lipid profile. Patient understanding and compliance are reinforced for all interventions. Patient was informed and verbally consented to the use of an ambient scribe for clinic note documentation during this visit. I have thoroughly discussed the nature and progressive nature of her symptoms, emphasizing the benefits and drawbacks of proposed interventions. Consent for ongoing management plans is confirmed. Aspirin use is delineated primarily for circulation maintenance. Discussion includes the re-initiation of a referral system for ENT and ophthalmology evaluations. Importance of allergy management through oral and nasal medications was addressed, noting any potential side effects. Future cholesterol re-evaluation plans were communicated clearly. The conversation entailed explicit instruction for immediate medical attention if any new or worsening symptoms arise. Orders: Orders Lipid Panel Today E78.5 - Hyperlipidemia, unspecified Vitamin D 25-OH Total Today E55.9 - Vitamin D deficiency, unspecified Comprehensive [place]. Panel Fast Today H53.8 - Other visual disturbances Referrals Ophthalmology Referral H53.8 - Other visual disturbances Ear/Nose/Throat Referral J30.9 - Allergic rhinitis, unspecified Medications: New levocetirizine 5 mg PO BID PRN 60 tabs 1RF allergy symptoms 30 days famotidine 40 mg PO BID 180 tabs 1RF 90 days montelukast 10 mg PO BEDTIME 90 tabs 1RF 90 days aspirin 81 mg PO DAILY 90 tabs 1RF 90 days Refilled fluticasone propionate 50 mcg/actuation (Flonase Allergy Relief) administer into each nostril 1 spray intranasal DAILY 16 grams 3RF 30 days Patient Instructions: - Continue use of baby aspirin unless subjected to uncontrollable bleeding. 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 - Adhere to ENT referral for breathing issues; consider sleep study. - Use prescribed intranasal sprays and allergy meds; watch for side effects. - Await repeat lipid testing in September. - Monitor and report sudden changes in symptoms.
[2024-07-08 15:37] VITALS: BP 132/80; BMI 31.9
== END 2024-07-08 16:25 | disposition home or self-care (01) ==
LOC: HO.HMCH 15:28
PROVIDERS: PCP Internal Medicine; Visit Provider Internal Medicine
DX: H53.8 Other visual disturbances (principal); J30.9 Allergic rhinitis, unspecified; I87.2 Venous insufficiency (chronic) (peripheral); E78.00 Pure hypercholesterolemia, unspecified

== ENCOUNTER → 2024-07-08 15:27 | Outpatient (BNVA) | payer OTHER, SELFPAY | PROVIDERS: PCP Internal Medicine; Visit Provider Internal Medicine | DX: I87.2 Venous insufficiency (chronic) (peripheral) (principal); R53.83 Other fatigue; H53.8 Other visual disturbances; E78.00 Pure hypercholesterolemia, unspecified; J30.9 Allergic rhinitis, unspecified; E78.5 Hyperlipidemia, unspecified; E55.9 Vitamin D deficiency, unspecified; Z86.718 Personal history of other venous thrombosis and embolism | CPT/HCPCS: 96127; 99212 ==

== ENCOUNTER 2024-09-02 09:37 | Outpatient (REF) | payer OTHER, SELFPAY ==
[2024-09-02 11:04] LABS: Alanine Aminotransferase 19 U/L (0-31); Albumin Level 4.1 g/dL (3.5-5.0); Alkaline Phosphatase 80 U/L (39-117); Anion Gap 11 (12-20); Aspartate Amino Transferase 21 U/L (5-31); Blood Urea Nitrogen 12 mg/dL (9-16); Calcium 9.0 mg/dL (8.4-10.2); Carbon Dioxide 25 mmol/L (22-29); Chloride 109 mmol/L (96-108); Cholesterol 235 mg/dL (<200); Estimated Glomerular Filt Rate > 60; HDL Cholesterol 48 mg/dL (>40); Potassium 3.9 mmol/L (3.3-5.1); Sodium 141 mmol/L (135-145); Total Protein 7.1 g/dL (6.5-8.0); Triglycerides 166 mg/dL (<150)
== END 2024-09-02 09:38 | disposition home or self-care (01) ==
LOC: HO.LAB 09:37
PROVIDERS: PCP Internal Medicine; Visit Provider Internal Medicine
DX: H53.8 Other visual disturbances (principal); E55.9 Vitamin D deficiency, unspecified; E78.5 Hyperlipidemia, unspecified
CPT/HCPCS: 36415; 80053; 80061; 82306

== ENCOUNTER 2024-12-25 09:29 | Day surgery (SDC) | payer OTHER, SELFPAY ==
--- OUTSIDE RECORDS SUMMARY | 2024-11-28 14:33 | XMS_ITS | Data Portability ---
Author Organization [place] [facility], Allergy Address [address] [address] Care Team Providers Care Cooker Sulfate Name Role Phone FAYE DESIR Primary Care Provider Assessment Encounter Date Assessment Date Assessment LastModified by Organization Details LastModified Time 09/03/2024 09/03/2024 58-year-old female with history of mild asthma presents for bilateral nasal obstruction and snoring. Exam today shows non-obstructing tonsils, bilateral inferior turbinate hypertrophy and erythema, and at least a small polyp of the right sphenoethmoid recess. Recommended starting mometasone nasal spray 2 puffs twice daily. Due to concerns for underlying allergies will order allergy testing. PFTs obtained today to assess her asthma severity prior to allergy testing were normal. Will obtain a CT of the sinuses to evaluate the extent of her polypoid disease. Suggest obtaining a sleep study as she describes multiple episodes of apnea per night that are concerning for CHEYANNE. Will follow up to review the results of her allergy testing and PSG. History obtained via her spouse who acted as housekeeper cleaning cooking dinorah Not available 09/03/2024 12:10:08 10/29/2024 10/29/2024 Erendira Gutierrez is a 58-year-old female with nasal congestion and snoring likely due to allergies and nasal polyps. I recommend initiating allergy shots to address her sensitivities to trees, dust, and mold. These injections will be administered weekly for approximately one year, followed by biweekly injections, as part of a three- to five-year treatment plan. I have discussed the rare risk of a severe allergic reaction during the shots and will prescribe an EpiPen for emergency use. Additionally, I have prescribed an antihistamine nasal spray to be used in conjunction with her current nasal steroid spray to further alleviate her symptoms. Blood work has been ordered to evaluate her for type 2 inflammation and confirm skin testing FOLLOW-UP: My team will reach out to coordinate the allergy injections. We will monitor her progress over the next few months to assess the effectiveness of the treatment and determine if surgical intervention to open the sinuses is necessary. [email or web address] Not available 10/29/2024 08:52:21 Plan of Treatment Reminders Order Date Submit Date Provider Last Modified By Organization Details Last Modified Time Details Appointments None recorde d. Lab unliste d lab - allerge , zone 1 2024 025 [facility], [address] [place] [address] [address], [place], [address], 10:45:25 ige, total, serum 2024 025 [facility] (Centralized Electronic Ordering - All Locations), Patient Can Go To The Location Of Their Choice, [id number] 10:45:24 CBC w/ auto diff 2024 025 [facility] (Centralized Electronic Ordering - All Locations), Patient Can Go To The Location Of Their Choice, 10:45:24 Referral None recorde d. Procedures allerge n immunot herapy; multipl e injecti ons (PROC) 2024 025 [email or web address] [facility]), [address] [place] [address], [place], [address], 11:50:43 spirome try, includi ng graphic record, total and timed vital capacit y, expirat ory flow rate measure ment(s) (PROC) 2024 025 [email or web address] Not available 5 16:51:31 allergy testing , skin prick (PROC) 2024 025 [email or web address] Not available 5 10:17:06 intrade rmal allergy skin testing (PROC) 2024 025 [email or web address] Not available 5 10:17:07 pulse oximetr y (PROC) 2024 025 [email or web address] Not available 5 10:17:07 polysom nograph y, diagnos tic (PROC) 2024 025 [email or web address] [facility] ([facility]), [address] [place] [address], [address], 5 11:34:42 Surgeries None recorde d. Imaging CT, sinuses , w/o contras t - nasal polyps. obtain in office at the time of allergy testing 2024 025 [email or web address] Not available 5 09:01:51 Medication Orders epineph rine 0.3 mg/0.3 mL injecti on, auto-in jector 2024 025 [facility][id number], [address] [place], [address], 5 08:45:53 azelast ine 137 mcg (0.1 %) nasal spray 2024 025 [facility] #[id number], [address] [place], [address], 5 08:45:53 mometas one 50 mcg/act uation nasal spray 2024 025 [facility][id number], [address] [place], [address], 5 12:11:32 Patient TargetsNo targets recorded. Patient Instructions Encounter Date Encounter Id Patient Instructions Last Modified By Organization Details Last Modified Time 09/03/2024 [id number] Nursing Documentation for PFT Only Administered by: Renee Blackwood Requesting Provider Dr. Jackson Height: 5 2 Weight 180 Billing Complete Yes Smoker: Never If yes how long ago started years; how many per day /day. When quit If smoking now- how much /day and for how long History of asthma: Yes Exacerbated by: seasons/allergies Asthma Meds: pippa plus Last 2 years ago used: Patient has Visual Training Aide? No at last seen ACT= Nursing Notes: [email or web address] Not available 09/03/2024 11:38:05 10/09/2024 [id number] Nursing Documentation for Allergy Testing: Ordering Provider Dr. Nowak Weight:lbs: kg: PFT Yes With Bronchodilator no approval needed to proceed with allergy testing? ok'd testing History of Asthma:Yes Asthma Meds: Last used: doesnt have asthma meds Asthma exacerbated by: allergies, season Chance that : No Fear of needles: No Regular medications reviewed in Computer: Yes Medication allergies: Reviewed Antihistamine use: No Medications used: Food Allergies: n/a Any foods make your mouth feeling itchy: No If yes: History of severe reaction where had to go to ER? 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 Symptoms having: Congestion If other: pnd,headache Frequency Seasonally Spirometry Contraindications: Heart attack in the last 3 months: No Major surgery in last 3 months: No Detached retina(serious eye issues) in last 2 months: No Hospitilization in last month: No Proceed with PFT Yes DrDavis approval needed: No Nursing Notes: Pt tolerated test well Yes Benadryl cream to test sites Yes Patient became syncopal-placed in supine position No Large reactions to MQT, reschedule IDT for a different date No Other: Written by: Renee Blackwood Not available 10/09/2024 15:55:11 10/29/2024 [id number] - Begin allergy shots as scheduled. - Use the prescribed nasal spray in addition to the current nasal spray. - Carry an EpiPen for emergency use. - Complete the ordered blood work. - Follow up with the team regarding allergy injections. [email or web address] Not available 10/29/2024 08:47:17 Please note: Par ts of this encounter note have been generated by AI based on audio conversation. Patient consent was required prior to utilizing this technology. Content review was required prior to finalizing the note. [email or web address] Not available 10/29/2024 08:47:17 Reason for Referral None Reported. Results Created Date Observation Date Name Description Value Unit Range Abnormal Flag Note LastModifiedBy Organization Detail LastModifiedTime 09/04/19 marleen metry testi ng* No observ ation record ed. [email or web address] Not Available 2024 11:31:53 10/27/19 25 10/09/2024 CT, sinus es, w/o contr ast No observ ation record ed. [facility] [address], [place], [address], 10/26/2024 18:16:35 Result Notes None recorded. 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 958087438 Active 2024 ASHISH CERVANTES MD [address] [address], [place], [address], [facility] 11:19:44 Deviated nasal septum 618910066 Active 2024 ASHISH CERVANTES MD [address] [address], [place], [address], [facility] 11:19:52 Allergic rhinitis 23685100 Active 2024 ASHISH CERVANTES MD [address] [address], [place], [address], [facility] 08:44:33 Non-allergi c rhinitis 833374775817 Active 2024 NEELIMA RAMIREZ [address] [facility], [place], [address], [facility] 5 11:23:55 Seasonal allergic rhinitis 549159466 Active 2024 NEELIMA RAMIREZ [address] [facility], [place], [address], [facility] 5 11:23:55 Perennial allergic rhinitis 419400338 Active 2024 CHELSIE BECKER [address] [facility], [place], [address], [facility] 5 11:25:19 Snoring 83805324 Active 2024 NEELIMA RAMIREZ [address] [facility], [place], [address], [facility] 5 11:38:50 Chronic maxillary sinusitis 39557413 Active 2024 ASHISH CERVANTES MD [address] [facility], [place], [address], [facility] 17:46:11 Polyp of nasal cavity 221342199 Active 2024 ASHISH CERVANTES MD [address] [facility], [place], [address], [facility] 5 08:43:58 Problem Notes None recorded. Procedures Surgical History Date Name Laterality Status Provider Name and Address Organization Details Recorded Time Allergy Testing-Full completed CHELSIE BECKER [address] [facility],[address] [address], [place], [address], [facility] 10/09/2024 15:57:32 JMSNasal/Sinus Endoscopy completed ASHISH JACKSON MD [address] [facility],[address] [address], [place], [address], [facility] 09/03/2024 12:09:07 tooth extraction completed Nata Salguero [place] [facility] 09/03/2024 10:48:19 open ligation of fallopian tube completed Nata Salguero [facility] 09/03/2024 10:48:54 Imaging Results None recorded. Procedure Notes None recorded. Medical Equipment None Reported. Allergies No known drug allergies Medications Name Sig Start Date Stop Date Status Note LastModified by Organization Details LastModified Time amoxicillin 500 mg capsule TAKE 1 CAPSULE BY MOUTH 3 TIMES A DAY FOR 7 DAYS 08/31 completed Not Available Not Available Not Available famotidine 40 mg tablet TAKE 1 TABLET BY MOUTH TWICE A DAY 09/03 completed Not Available Not Available Not Available aspirin 81 mg tablet,rosamaria yed release TAKE 1 TABLET BY MOUTH EVERY DAY 2024 active Not Available Not Available Not Avai lable mometasone 50 mcg/actuati on nasal spray SPRAY 2 SPRAYS BY INTRANASA L ROUTE TWICE A DAY active Not Available Not Available No t Available montelukast 10 mg tablet TAKE 1 TABLET BY MOUTH EVERY DAY AT BEDTIME 09/03 completed Not Available Not Available Not Available azelastine 137 mcg (0.1 %) nasal spray SPRAY 2 SPRAYS BY INTRANASA L ROUTE TWICE A DAY active Not Available Not Available No t Available epinephrine 0.3 mg/0.3 mL injection, auto-inject or USE 1 AUTOINJEC TOR NEEDED FOR ANAPHYLAX IS DIRECTED active Not Available Not Available No t Available ibuprofen 600 mg tablet TAKE 1 TABLET BY MOUTH EVERY 8 HOURS NEEDED FOR PAIN *MAX 2400MG/DA Y* 09/03 completed Not Available Not Available Not Available fluticasone propionate 50 mcg/actuati on nasal spray,suspe nsion USE 1 SPRAY IN EACH NOSTRIL DAILY (N/C) active Not Available Not Available No t Available levocetiriz ine 5 mg tablet TAKE 1 TABLET BY MOUTH TWICE A DAY NEEDED FOR ALLERGY 09/03 completed Not Available Not Available Not Available [facility] 180 mg tablet Take 1 tablet every day by oral route. active Not Available Not Available No t Available apixaban 2.5 mg tablet Take 1 tablet twice a day by oral route. 10/29 completed Not Available Not Available Not Available Vitals Date Recorded Body height Body mass index (BMI) Body weight Systolic And Diastolic Provider Name and Address Organization Details Last Updated DateTime 09/03/2024 157.48 cm 32.7 kg/m2 58735.03 g 114/82 mm[Hg] Nata Salguero [place] [facility] 09/03/2024 10:47:15 Date Recorded Body height Oxygen saturation Oxygen saturation in Arterial blood by Pulse oximetry Heart rate Body mass index (BMI) Body weight Systolic And Diastolic Provider Name and Address Organization Details Last Updated DateTime 157.48 cm 98 % 98 % 74 /min 32.7 kg/m2 06632.0 3 g 115/81 mm[Hg] CHELSIE BECKER [address] [place] [address], [address] , [place] [facility] 14:17:43 Date Recorded Body height Body weight Provider Name and Address Organization Details Last Updated DateTime 10/29/2024 157.48 cm 86626.03 g Faye Jade [place] [facility] 10/29/2024 08:20:09 Social History None recorded. Functional Status None recorded. Mental Status None recorded. Family History Nothing Reported. Medical History Condition Response Bleeding Disorder Y Asthma Y Gynecological HistoryNo gynecological history recorded. Obstetrics History GPAL:G 0 P 0 0 0 0 Past Encounters Encounter ID Performer Location Encounter Start Date Encounter Closed Date Diagnosis/Indication Diagnosis SNOMED-CT Code Diagnosis ICD10 Code Diagnosis IMO Codes Diagnosis Note [id number] ASHISH APONTE MD [facility] [address] [address] 09/03/2024 10:29:17 09/03/2024 11:47:05 Uncomplicated mild persistent asthma 867162117 J45.30 [id number] Normal PFTs yes perfect you you should go to the [facility] of n kamaljit cavity and/or nasal sinus 338412157 J33.9 60937 Deviated nasal septum 12 4839473 J34.2 250474 Allergic rhinitis 915533 04 J30.9 Snoring 90787284 R06.83 [id number] CHELSIE BECKER [facility] [address] [place] [address] [place] [address] 09/03/2024 11:24:24 09/03/2024 11:38:22 Perennial allergic rhinitis 222844341 J30.89 [id number] RENEE BLACKWOOD [facility] [address] [facility],[place] [address] [place] [address] 10/09/2024 13:43:55 10/09/2024 16:10:50 Perennial allergic rhinitis 926771846 J30.89 [id number] ASHISH APONTE MD [facility] [place] 100 [facility] FARZANA RAMIREZ [address] 10/29/2024 08:11:42 10/29/2024 08:53:14 Deviated nasal septum 888468356 J34.2 378729 Polyp of nasal cavity 73 6641605 J33.0 Allergic rhinitis 536894 04 J30.89 We also discussed the role of immunother apy. I explained that this is instituted for the most significan t of allergies and involves the introducti on of increasing ly graduated dosages of the appropriat e allergens by subcutaneo us injection to facilitate tolerance. I explained about the likelihood of some improvemen t usually within a three to six month time period provided that the patient is compliant with therapy. It may take substantia lly longer for patients with severe allergy. We spoke about the duration of therapy, which typically lasts from three to five years though at times can be indefinite . We also discussed the risk of anaphylaxi s with therapy. Use of an Epipen discussed. Health Concerns Section Related Observation LastModified by Organization Detai ls LastModified Time None Recorded Concern Status LastModified by Organization Details LastModified Time None Recorded Advance Directives Directive None Recorded Payers Insurance Date Sequence Insurance Name Policy Number Policy Ruiz Covered Member ID Ruiz Member ID Guarantor Name 10/09/2024 2 [place] [facility] Erendira Mercado [place] [id number] Erendira Mercado [place] 10/29/2024 1 [facility] ([facility]) [id number] Erendira Rogelio Mcdaniels [place] [id number] Erendira Mercado [place] 10/09/2024 1 [facility] (MEDICAID HMO) [id number] Erendira Gutierrez [id number] Erendira Gutierrez Notes Date Note Type Note Provider Name and Address Organization Details Recorded Time 09/03/2024 text/html ROS as noted in the HPI 58-year-old Maltese-speaking female with h/o asthma presents with bilateral nasal obstruction and congestion for the past 8 months with no seasonal predilection. She believes she has allergies to pollen, but has not had formal allergy testing and has never had immunotherapy. She reports occasional bilateral ear fullness and difficulty with smelling. Denies nasal discharge, sinus infections, ear infections, sinus pressure, or trauma. She has been using Flonase 2 times weekly for the last 2 years. She was started on montelukast 3 months ago and does not have any inhalers for her asthma. Currently does not use any oral antihistamines. Secondarily, she reports worsening snoring over the past year with multiple night time awakenings due to difficulty breathing. She has never had a sleep study. No h/o tonsillectomy. ASHISH JACKSON MD [address] [place] [address],[address], [address], [facility] 09/03/2024 12:11:55 10/29/2024 text/html ROS as noted in the HPI Erendira Gutierrez is a 58-year-old female who presents for a discussion of her allergy results. An housekeeper cleaning cooking was present during the visit. She reports significant nasal congestion and snoring, which she attributes to her allergies. She denies choking or stopping breathing during sleep. Her medical history includes blood clots in the right leg, for which she previously took Apixaban but is no longer on these medications. She currently takes aspirin occasionally. She has been using a nasal spray twice daily, which has been helpful for her symptoms. Allergy testing demonstrated sensitivities to trees, dust, and mold. She denies taking any heartburn medications or other allergy pills such as cetirizine or montelukast. She has not reported any other medications apart from the nasal spray and inhaler prescribed for her allergies. ASHISH JACKSON MD [address] [place] [address],[address], [address], [facility] 10/29/2024 08:53:04 OBGyn Episode No OBEpisode recorded.
--- NOTE | 2024-12-22 14:36 | HO.ANESPROP2 ---
Documented by User: Emily Dougherty NP 12/22/24 14:37 HPI - Anesthesia Eval Consult details Narrative: 59yo F for Colonoscopy PMFSH Active Problems Active Problems: All Active Problems Blurry vision (Acute) Common cold (Acute) Positive PPD (Acute) BPPV (benign paroxysmal positional vertigo) (Acute) Vertigo (Acute) Physical exam (Acute) Varicose veins of right lower extremity with inflammation (Acute) Allergic rhinitis (Acute) Past Medical History Medical History BPPV (benign paroxysmal positional vertigo) Chronic venous insufficiency Pure hypercholesterolemia Family History Family History Mother Osteoporosis Father No problems noted. Surgical History Surgical History H/O colonoscopy with polypectomy History of tooth extraction History of bladder surgery History of tubal ligation Social History Social History Housing: House Alcohol intake: never Patient Tobacco Use Status: Never used Tobacco e-Cigarette/Vaping Use: Never Used Second Hand Smoke Exposure: No Use of substances other than those prescribed or required for medical reasons: No Are you DNR?: No Advance Directives: No Advance Directives Information Provided: Yes Patient : No : No service: No Current occupational status: employed Current occupational exposures/hazards: No Cognitive needs: No Hearing needs: No Vision needs: Yes Meds Allergies Allergy/AdvReac Type Severity Reaction Status Date / Time No Known Allergies Allergy Verified 07/08/24 15:54 Assessment and Plan Assessment Anesthesia Assessment: Chart Reviewed Documented by User: Edmar Martin MD 12/25/24 11:21 PMFSH Past Medical History Medical History BPPV (benign paroxysmal positional vertigo) Chronic venous insufficiency Pure hypercholesterolemia Functional capacity: independent ambulation Family History Family History Mother Osteoporosis Father No problems noted. Family history of problems with anesthesia: No Surgical History Surgical History H/O colonoscopy with polypectomy History of tooth extraction History of bladder surgery History of tubal ligation History of Problems with Anesthesia: No Social History Social History Housing: House Alcohol intake: never Patient Tobacco Use Status: Never used Tobacco e-Cigarette/Vaping Use: Never Used Second Hand Smoke Exposure: No Use of substances other than those prescribed or required for medical reasons: No Are you DNR?: No Advance Directives: No Advance Directives Information Provided: Yes Patient : No : No service: No Current occupational status: employed Current occupational exposures/hazards: No Cognitive needs: No Hearing needs: No Vision needs: Yes Meds Allergies Allergy/AdvReac Type Severity Reaction Status Date / Time No Known Allergies Allergy Verified 07/08/24 15:54 Exam Exam Date and Time: 12/25/24 Airway Loose/Missing/Broken Teeth: Yes (multiple missing teeth) Heart: normal Lungs: normal Other: normal Assessment and Plan Final Anesthetic Review Family History of Problems with Anesthesia: No History of Problems with Anesthesia: No NPO: Yes ASA Class: II Final Preanesthetic Review: No Changes in Pt Med Stat, Meds/Allgs Chart Reviewed, Consent Obtained/Reviewed and Anes Risks/Benef Reviewed Patient Risk: Intermediate Procedure Risk: Low Anesthetic Plan Anesthetic Plan: MAC: Disposition: Standard PACU
[2024-12-23 13:08] VITALS: BMI 31.9
[2024-12-25 10:42] VITALS: BP 127/85; PULSE 76; RESP 16; TEMP 36.2; O2SAT 99
--- NOTE | 2024-12-25 10:49 | MHC.SHP ---
Pre-Procedural Eval Section A - 24 Hr Update-Section A only Date of Service: 12/25/24 Section B - Complete if H&P > 30 days Chief Complaint: screening Details of Present Illness: Hx of VTE HLD Present Medications: see Short Stay Collaborative assessment Allergies: Allergies Allergy/AdvReac Type Severity Reaction Status Date / Time No Known Allergies Allergy Verified 07/08/24 15:54 Review of Systems Review of Systems Comment: Ten point ROS negative Exam Exam Comment: Gen appear: No acute distress HEENT: no icterus Chest: No overt resp distress Abd: soft, nontender, nondistended Psych: Stable affect, answering questions appropriately Neuro: A/Ox3 noted to move all extremities spontaneously Ext: no peripheral edema Plan Diagnosis/Plan: Unchanged I have reviewed the history and physical and performed a pertinent physical examination on my patient. No changes have occurred unless specified. Time Spent With Patient Time: Total time managing care of this patient today ____ minutes.
[2024-12-25] MEDS: Lactated Ringers 1,000 ML 100 ML IVCONT (11:00)
--- NOTE | 2024-12-25 12:00 | HO.OPN-COLON ---
Colonoscopy Operative Note Operative Note Date of Service: 12/25/24 Narrative: Procedure: Colonoscopy Indication: Screening Endoscopist: Stacie Vaughan MD Anesthesia Provider: Dr Martin Anesthesia type: MAC Instrument: Olympus [id number]-H190L Consent: Indication, risks vs benefits, and alternatives were discussed with the patient who gave written informed consent to proceed. An freelance interpreter/translator was utilized to assist with the consent. EKG, pulse, pulse oximetry and blood pressure were monitored throughout the procedure. Please see anesthesia flowsheet. Procedure: The patient was brought to the procedure room and placed in the left lateral decubitus position. IV medications were administered by the anesthesia provider in attendance. A digital rectal exam was performed which was abnormal due to finding of hemorrhoids. A distal attachment cap was affixed to the tip of the colonoscope which was then inserted through the anus and advanced through the colon to the cecum at 75 cm,and terminal ileum. Appendiceal orifice and ileocecal valve were identified. Mucosa was carefully examined under high definition white light as the instrument was slowly withdrawn in a retrograde panoramic fashion. Retroflexion was performed in rectum. The procedure was not difficult. There were no immediate obvious complications. The quality of the prep was BBPS: 3+3+3 = adequate Withdrawal time 13 minutes. Limitations: No limitations. Findings: Mucosa: Normal to cecum and terminal ileum. Protruding lesions: 2 sessile polyps of size 2 mm in cecum. Cold forceps polypectomy was performed. The polyps were completely removed and retrieved. 1 sessile polyp of size 4 mm in descending colon. Cold snare polypectomy was performed. The polyp was completely removed and retrieved. Large internal hemorrhoids without stigmata of recent bleeding. Impression: 1. Normal colon mucosa 2. Total of 3 polyps removed 3. External and internal hemorrhoids Recommendations: - Follow path results. - Repeat colonoscopy in 3-5 years depending on the results.
[2024-12-25 12:05] VITALS: BP 117/76; PULSE 82; RESP 16; TEMP 36.5; O2SAT 98
[2024-12-25 12:19] VITALS: BP 124/89; PULSE 73; RESP 18; TEMP 36.1; O2SAT 97
== END 2024-12-25 13:02 | disposition home or self-care (01) ==
PROVIDERS: PCP Internal Medicine; Visit Provider Internal Medicine
PROC: 0DJD8ZZ Inspection of Lower Intestinal Tract, Via Natural or Artificial Opening Endoscopic (ICD-10-PCS; CPT 45378; principal; 2024-12-25 11:40)
DX: Z12.11 Encounter for screening for malignant neoplasm of colon (principal); K64.8 Other hemorrhoids; K64.4 Residual hemorrhoidal skin tags; D12.4 Benign neoplasm of descending colon; K63.5 Polyp of colon
CPT/HCPCS: 45380; 45385; 88305; J2003; J2704; J3010

== ENCOUNTER → 2024-12-25 09:29 | Outpatient (BNV) | payer OTHER, SELFPAY | PROVIDERS: PCP Internal Medicine; Visit Provider Internal Medicine | DX: Z12.11 Encounter for screening for malignant neoplasm of colon (principal); D12.0 Benign neoplasm of cecum; K64.8 Other hemorrhoids; D12.4 Benign neoplasm of descending colon | CPT/HCPCS: 45380; 45385 ==